=== PATIENT | female | born 1980 | race Caucasian/White ===

== ENCOUNTER 2017-03-31 02:20 | Emergency (ER) | payer BC ==
[~2017-03-31] VITALS: Ht 154.9 cm; Wt 60.3 kg
== END 2017-03-31 02:55 | disposition home or self-care (01) ==
LOC: ED 02:20
DX: S00.93XA Contusion of unspecified part of head, initial encounter (principal); F10.129 Alcohol abuse with intoxication, unspecified; Z88.5 Allergy status to narcotic agent; W01.10XA Fall on same level from slipping, tripping and stumbling with subsequent striking against unspecified object, initial encounter; Y93.41 Activity, dancing; Y92.89 Other specified places as the place of occurrence of the external cause
CPT/HCPCS: 99282